=== PATIENT | male | born 1975 | race Caucasian/White ===

== ENCOUNTER 2019-09-11 08:10 | Inpatient (IN) ==
[2019-09-11] MEDS ORDERED: ZOFRAN IV ONE (08:34)
[2019-09-11] MEDS ORDERED: TORADOL IV ONE (08:34)
[2019-09-11 09:12] LABS: BASO# 0.02 X1000 (0.0-0.2); BASO% 0.1 % (0.0-0.8); EOS# 0.04 X1000 (0.0-0.7); EOS% 0.3 % (0.0-10.0); HEMATOCRIT 38.4 % (42.0-52.0); HEMOGLOBIN 13.3 g/dL (14.0-18.0); IMM GRAN# 0.02 X1000 (0.0-0.04); IMM GRAN% 0.1 % (0.0-0.5); LYMPH# 1.39 X1000 (1.2-3.4); LYMPH% 10.4 % (20.5-51.1); MCH 30.2 PG (27-31); MCHC 34.6 g/dL (33-37); MCV 87.3 FL (81-99); MONO# 1.15 X1000 (0.11-0.59); MONO% 8.6 % (1.7-9.3); MPV 10.3 FL (7.4-10.4); NEUT# 10.73 X1000 (1.4-6.5); NEUT% 80.5 % (42.2-75.2); PLT 242 X1000 (130-400); RDW 13.2 % (11.5-14.5); WBC 13.35 X1000 (4.8-10.8)
[2019-09-11 09:35] LABS: ALBUMIN 3.9 g/dL (3.5-5.0); CALCIUM 9.1 mg/dL (8.8-10.2); CREATININE 1.4 mg/dL (0.7-1.2); POTASSIUM 4.3 mmol/L (3.5-5.1); TOTAL PROTEIN 7.6 g/dL (6.3-8.3)
[2019-09-11] MEDS ORDERED: NS 1,000 ML IV ONE (09:37)
--- NOTE | 2019-09-11 09:41 | PROVIDER DOCUMENTATION ---
HPI-Abdominal Pain/GI Problem - General Chief Complaint: Flank Pain Stated Complaint: LOWER ABD PAIN Time Seen by Provider: 09/11/19 09:04 Source: patient Allergies/Adverse Reactions: Patient Allergies Allergy/AdvReac Type Severity Reaction Status Date / Time No Known Allergies Allergy Verified 09/09/19 06:44 Home Medications: Home Medication List Medication Instructions Recorded Confirmed Last Taken Type Hydrocodone/Acetaminophen [[place] 1 ea PO Q6H PRN #12 tab 09/07/19 09/09/19 09/09/19 Rx 7.5-325 Tablet] Tamsulosin [Flomax] 0.4 mg PO DAILY #10 cap 09/07/19 09/09/19 09/08/19 Rx Promethazine [Phenergan] 25 mg PO Q6H PRN PRN #14 tab 09/09/19 Unknown Rx - History of Present Illness-ABD Nature of Presenting Problems: 43yom present to ER with c/o abd pain. Pt reports he had a lithotripsy performed on 09/07. Pt returned to ER with increased pain on 09/09 showing 4mm stone and possible ileus. Denies fever. Pt states the norco is not helping his pain. Denies nvd. Abdominal Pain Onset Location: reports: generalized abdomen Pain Radiation: reports: groin Quality of Pain: reports: sharp Onset/Duration: reports: 2 days ago Timing: reports: still present Associated Symptoms: reports: genitourinary problems. denies: constipation, fever/chills, shortness of breath, vomiting Emesis Description: reports: none Review of Systems - Adult - REVIEW OF SYSTEMS - ADULT Constitutional: reports: no symptoms reported. denies: chills, fever Eyes: reports: no symptoms reported Ears, Nose, Mouth & Throat: reports: no symptoms reported Cardiovascular: reports: no symptoms reported. denies: chest pain Respiratory: reports: no symptoms reported. denies: shortness of breath Gastrointestinal: reports: see HPI, abdominal pain. denies: constipation, nausea, vomiting Genitourinary: reports: see HPI, dysuria, flank pain, hematuria Musculoskeletal: reports: no symptoms reported Integumentary: reports: no symptoms reported Neurological: reports: no symptoms reported Psychiatric: reports: no symptoms reported Endocrine: reports: no symptoms reported Hematologic/Lymphatic: reports: no symptoms reported Allergic/Immunologic: reports: no symptoms reported All Other Systems: Reviewed and Negative Past History - Adult - PAST MEDICAL HISTORY-ADULT Review of Records: reports: Old Records Reviewed, Nursing Assessment Review, Medications Reviewed, Social history reviewed & non-contributory. Major Childhood Illnesses: reports: denies history Cardiovascular: reports: HTN Respiratory: reports: denies history Gastrointestinal: reports: denies history Obstetrical/Gynecological: reports: denies history Genitourinary: reports: denies history Musculoskeletal: reports: chronic pain (right shoulder), orthopedic injury (right shouder) Neurological: reports: denies history Endocrine/Immune: reports: denies history Other Conditions: reports: denies history - PRIOR SURGERIES/PROCEDURES Surgical/Procedure History: reports: cholecystectomy - IMMUNIZATION STATUS Childhood Immunizations: See Nurse Assessment Flu Vaccine: See Nurse Assessment - FAMILY HISTORY Family History: reviewed, not pertinent - SOCIAL HISTORY Smoking: denies Physical Exam-General - PHYSICAL EXAM-ADULT Initial Vital Signs Reviewed: Yes - CONSTITUTIONAL General Appearance: alert, mild distress - HEAD, EARS, NOSE, MOUTH & THROAT HENMT: moist mucous membranes, normal ENT inspection - NECK Neck: full range of motion, supple, normal inspection - RESPIRATORY Respiratory: lungs clear, normal breath sounds, no respiratory distress, no accessory muscle use - CARDIOVASCULAR Cardiovascular: regular rate, rhythm - GASTROINTESTINAL (ABDOMEN) Abdominal Exam: normal bowel sounds, soft, tenderness (diffuse) - GENITOURINARY Male Genitalia: deferred Rectal Exam: deferred - LYMPHATIC Lymphatic: no adenopathy - MUSCULOSKELETAL Back Exam: normal inspection, no vertebral tenderness, CVA tenderness Extremity: normal range of motion, normal gait, normal inspection - SKIN Integumentary: normal color, warm/dry - NEUROLOGIC Neurologic: grossly normal, no motor/sensory deficits - PSYCHIATRIC Psych/Mental Status: normal mood/affect, normal thought content, normal thought process Progress - PLAN OF CARE/RESULTS Progress/Plan/Lab Results: Vital Signs - 8 hr 09/11/19 08:14 Temperature 98.5 F Pulse Rate 83 Respiratory Rate 16 Blood Pressure 156/82 O2 Sat by Pulse Oximetry 96 Laboratory Results - last 24 hr 09/11/19 09/11/19 08:30 08:30 WBC 13.35 H RBC 4.40 L Hgb 13.3 L Hct 38.4 L MCV 87.3 MCH 30.2 MCHC 34.6 RDW Std Deviation 13.2 Plt Count 242 MPV 10.3 Immature Gran % (Auto) 0.1 Neut % (Auto) 80.5 H Lymph % (Auto) 10.4 L [place] % (Auto) 8.6 Eos % (Auto) 0.3 Baso % (Auto) 0.1 Immature Gran # (Auto) 0.02 Neut # (Auto) 10.73 H Lymph # (Auto) 1.39 [place] # (Auto) 1.15 H Eos # (Auto) 0.04 Baso # (Auto) 0.02 Sodium 136 Potassium 4.3 Chloride 101 Carbon Dioxide 23 L Anion Gap 13 BUN 12 Creatinine 1.4 H Estimated GFR/1.73 m2 55 BUN/Creatinine Ratio 9 Glucose 135 H Calculated Osmolality 274 Calcium 9.1 Total Bilirubin 1.00 AST 19 ALT 25 Alkaline Phosphatase 59 Total Protein 7.6 Albumin 3.9 Globulin 4.0 Albumin/Globulin Ratio 1.0 Orders Category Date Time Status CT ABD/PELVIS W/IV CONT ONLY [CT] Stat Exams 09/11/19 09:31 Ordered CBC WITH DIFF [HEME] Stat Lab 09/11/19 08:30 Completed COMPREHENSIVE METABOLIC PANEL [CHEM] Stat Lab 09/11/19 08:30 Completed UA [URINALYSIS W/POSS RFLX CULT] [URINALYSIS] Stat Lab 09/11/19 09:33 Ordered Ketorolac [Toradol] Med 09/11/19 08:34 Discontinued 30 mg IV NOW ONE Ns 1000 ml IV Bolus X1 Med 09/11/19 09:37 Ordered 0.9% Sodium Chloride Inj [Ns] 1,000 ml IV 999 mls/hr Ondansetron [Zofran] Med 09/11/19 08:34 Discontinued 4 mg IV NOW ONE Result Diagrams: 09/11/19 08:30 09/11/19 08:30 - REASSESSMENT Reassessment #1 Time Reassessed: 09:37 (discussed pt with Dr Lucio, suggests rescanning pt. Made aware of creat, suggesting give 1L NS) Reassessment #2 Time Reassessed: 11:11 (states pain has improved but is starting to come back. Made aware of results thus far) Status: improving Reassessment #3 Time Reassessed: 11:19 (discussed with pt that Dr Goodwin suggests dc home with Rx toradol. Pt again states he does not wish to do this. Will plan to admit pt.) - CT/MRI 1 CT Study: Abdomen, Pelvis Impression: See EMR Report ( EXAM: CT ABD/PELVIS W/IV CONT ONLY - 09/11/2019 HISTORY: abd pain, r/o ileus TECHNIQUE: CT abdomen/pelvis with intravenous contrast COMPARISON: 09/09/2019 CT renal stone search without contrast FINDINGS: There is a 4 mm stone in the distal right ureter slightly proximal to the ureterovesicular junction similar to prior. There is moderate right hydronephrosis similar to prior. There is increased right perinephric edema. There are nonobstructing stones in the lower right kidney measuring up to 10 mm. There is no left renal stone or left hydronephrosis identified. There are no substantial abnormalities of the liver, spleen, or pancreas identified. 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 The gallbladder surgically absent. There are no substantially enlarged lymph nodes identified. There is no evidence of bowel obstruction. There has been interval decrease in mild wall bowel distention compared to prior. The appendix is somewhat difficult to evaluate due to adjacent perinephric edema, but there is no obvious appendicitis. There is no free air or abscess identified. IMPRESSION: 4 mm stone in distal right uret er, with moderate right hydronephrosis, similar to prior. There is increased perinephric edema on the right compared to prior. Nonobstructing stones in lower right kidney. Decrease in mild small bowel distention compared to prior. This exam was performed using automated exposure control, adjustment of mA or kV according to patient size, and/or use of iterative reconstruction technique. Electronically signed by Vijay Deal 09/11/2019 11:01 AM) - CONSULTS/PCP/HOSPITALIST Notification #1 *Consult/PCP/Hospitalist*: Dr Goodwin Time Discussed: 11:15 (either dc pt home with Rx Toradol or admit to hospitalist. Made aware pt is not happy with plan to dc home. ) Consult Disposition: Admit (to [facility]) #2 Consult: Dr West Time Discussed: 11:34 Consult Disposition: Will see in ED, Admit Departure - Departure Date of Disposition Decision: 09/11/19 Time of Disposition Decision: 11:20 DIAGNOSIS: Ureteral stone Disposition: ADMITTED INPATIENT 09 Certified Medical Emergency: Emergent Condition: Stable Referrals and Follow-Ups: Ruslan Fischer MD [Primary Care Provider] - - Critical Care Note This patient required my direct & personal management of CC.: No Attestation - Physician/ SILVIA Attestation Patient care was provided by Advanced Practice Provider:: Yes Advanced Practice Provider:: Salud Taylor Advanced Practice Provider documentation review:: The Mid-level provider documentation, treatment plan and medical decision making was reviewed by the physician who agrees with all treatment and medical decision making by the MLP. The physician spent face to face time with patient:: No Advanced Practice Provider documentation review:: Supervising physician onsite and consulted in the evaluation and care of this patient. The physician did not have a face to face encounter with the patient.
[2019-09-11 09:46] LABS: URINE SOURCE CLEAN CATCH
[2019-09-11 09:58] LABS: BILIRUBIN URINE NEGATIVE (NEGATIVE); BLOOD URINE SMALL (NEGATIVE); COLOR YELLOW; GLUCOSE URINE NEGATIVE (NEGATIVE); KETONE URINE TRACE mg/dL (NEGATIVE); LEUKOCYTES URINE NEGATIVE (NEGATIVE); NITRITE URINE NEGATIVE (NEGATIVE); PH URINE 7.5; PROTEIN URINE 50 mg/dL (NEGATIVE); SP GRAVITY URINE 1.021; TURBIDITY URINE CLEAR (CLEAR); UR EPITHELIAL CELLS <10 /HPF (<10); URINE BACTERIA NEGATIVE /HPF; URINE RBC <10 /HPF (<10); URINE WBC <10 /HPF (<10); UROBILINOGEN URINE NORMAL (NORMAL)
--- NOTE | 2019-09-11 11:03 | Diag Imaging Result Doc PS360 ---
EXAM: CT ABD/PELVIS W/IV CONT ONLY - 09/11/2019 HISTORY: abd pain, r/o ileus TECHNIQUE: CT abdomen/pelvis with intravenous contrast COMPARISON: 09/09/2019 CT renal stone search without contrast FINDINGS: There is a 4 mm stone in the distal right ureter slightly proximal to the ureterovesicular junction similar to prior. There is moderate right hydronephrosis similar to prior. There is increased right perinephric edema. There are nonobstructing stones in the lower right kidney measuring up to 10 mm. There is no left renal stone or left hydronephrosis identified. There are no substantial abnormalities of the liver, spleen, or pancreas identified. 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 The gallbladder surgically absent. There are no substantially enlarged lymph nodes identified. There is no evidence of bowel obstruction. There has been interval decrease in mild wall bowel distention compared to prior. The appendix is somewhat difficult to evaluate due to adjacent perinephric edema, but there is no obvious appendicitis. There is no free air or abscess identified. IMPRESSION: 4 mm stone in distal right ureter, with moderate right hydronephrosis, similar to prior. There is increased perinephric edema on the right compared to prior. Nonobstructing stones in lower right kidney. Decrease in mild small bowel distention compared to prior. This exam was performed using automated exposure control, adjustment of mA or kV according to patient size, and/or use of iterative reconstruction technique. Electronically signed by Vijay Deal 09/11/2019 11:01 AM
[2019-09-11] MEDS ORDERED: MORPHINE IV ONE (11:20)
[2019-09-11] MEDS ORDERED: ZOFRAN IV PRN ×2 (12:26→16:06)
[2019-09-11] MEDS ORDERED: MORPHINE IV PRN ×2 (12:26→16:05)
[2019-09-11] MEDS ORDERED: NS 1,000 ML IV SCH (12:30)
[2019-09-11] MEDS ORDERED: FLOMAX PO SCH (12:30)
[2019-09-11 16:29] LABS: CALCIUM 8.5 mg/dL (8.8-10.2); CREATININE 1.4 mg/dL (0.7-1.2); POTASSIUM 3.9 mmol/L (3.5-5.1)
[2019-09-11] MEDS: DULCOLAX PR SCH (18:00)
[2019-09-11] MEDS: NS 1,000 ML IV SCH (18:00)
--- NOTE | 2019-09-11 19:16 | HISTORY AND PHYSICAL ---
CHIEF COMPLAINT: Right flank pain. HPI: This is a 43-year-old gentleman with a prior history of kidney stones, high cholesterol, hypertension who is status post right extracorporeal shockwave lithotripsy on 09/07/2019. He presents to the emergency room for the second time in 48 hours complaining of right flank pain. He denied any nausea, vomiting, diarrhea, any chest pain, any fevers or chills. Renal CT on August 09 revealed a 4 mm obstructing stone in the distal right ureter with moderate right hydronephrosis and possible mild ileus. CT scan of the abdomen and pelvis with IV contrast today revealed a 4 mm stone in the distal right ureter with moderate right hydronephrosis similar to prior but with increased perinephric edema on the right compared to prior with a decrease in the mild small bowel distention. PAST MEDICAL HISTORY: 1. Kidney stones. 2. Migraine headaches. PAST SURGICAL HISTORY: Lithotripsy and cholecystectomy. SOCIAL HISTORY: He is . He denies any alcohol, tobacco or illicit drug use. ALLERGIES: No reported allergies. HOME MEDICATIONS: A list will be obtained by the nursing staff and once verified review and restart as appropriate. REVIEW OF SYSTEMS: Discussed patient with pertinent positives stated in the HPI. He denied any syncope, dizziness, chest pain, palpitations, any fevers or chills, PND, orthopnea, any nausea, vomiting, diarrhea, constipation, black or bloody vomitus or stools any hematuria dysuria, gross hematuria, dysuria, frequency ,urgency. PHYSICAL EXAMINATION: GENERAL: This is a 43-year-old gentleman who is lying on the stretcher in the emergency room in no distress. VITAL SIGNS: Blood pressure is 150/80 with a heart rate of 83, respirations 16, temperature is 98.5 degrees oral with room air saturations 96 to 98 percent. HEENT: Pupils are equal, round, react to light. EOMs are intact. Sclerae are anicteric. Head is normocephalic, atraumatic. Mucous membranes are moist. NECK: Supple with trachea midline. CARDIOVASCULAR: Regular rate and rhythm. S1 and S2 appreciated. Calves are nontender bilateral. Peripheral pulses palpable x4 extremities. PULMONARY: Breath sounds are clear with no increased work of breathing noted. Chest rises and falls symmetric respiration. GASTROINTESTINAL: Abdomen soft, nontender, nondistended with bowel sounds in all 4 quadrants. GENITOURINARY: He has positive right CVAT. No suprapubic tenderness. NEUROLOGIC: He is alert and oriented x3. SKIN: Warm and dry. LABS: WBC is 13.3 with hemoglobin 13.3, hematocrit 38.4, platelets 242,000. Sodium 136, potassium 4.3, BUN 12, creatinine 1.4 with a glucose of 135. Urinalysis has small amount of blood, which is consistent with stone. CT of the abdomen and pelvis reveals a 4 mm stone in the distal right ureter with moderate right hydronephrosis with increased perinephric edema on the right compared to prior. ASSESSMENT AND PLAN: 1. Obstructing 4 mm stone in the distal right ureter with moderate right hydronephrosis with increased perinephric edema. 2. Decrease in small bowel distention compared to prior. 3. Right costovertebral angle tenderness/right lower quadrant pain. PLAN: Will admit him to the hospital. He will be transferred to [facility] to be followed by Dr. Joseph, urology. He will have full liquids with monitor strict I and O, will check a BMP and CBC at 3 o'clock and then in the morning. Use morphine IV for pain with Zofran for nausea. Will start Flomax b.i.d., continue with gentle hydration, give Dulcolax per rectum now on then q.6 hours. Plan was discussed with Dr. Fischer. Further treatments pending hospital course. Dictated by PINKY West for Ruslan Fischer MD cc: PINKY West MD
[2019-09-11] MEDS: DILAUDID IV PRN (20:15)
--- NOTE | 2019-09-11 21:34 | CONSULTATION ---
DATE OF CONSULTATION: 09/11/2019 CHIEF COMPLAINT: Right flank and pelvic pain with right ureteral stone. HISTORY OF PRESENT ILLNESS: Mr. Gomez is a 43-year-old who presented to the emergency room this morning complaining of right lower pelvic and flank pain. The patient had undergone a right extracorporeal shockwave lithotripsy on 09/07/2019. He was having significant pain on Wednesday and came into the emergency room. A CT scan was performed at that time which showed a 4 mm stone in the distal right ureter. He was not having any fevers or chills at that time and was sent home with pain control. However, patient's pain persisted and he re-presented to the emergency room today. He has had several stone events in the past, but he has been able to pass them spontaneously. He states he passed several stones at home after his surgery last , but has been having persistent pain. However, this stone fragment seems to have obstructed him and not passed. The patient complains of nausea. Denies any vomiting. He remains afebrile. He is having some burning with urination and occasional blood in his urine. ALLERGIES: No known drug allergies. MEDICATIONS: 1. [place] 7.5/325 mg take one tablet every six hours as needed for pain. 2. Flomax 0.4 mg daily. 3. Phenergan 25 mg every six hours. PAST MEDICAL HISTORY: 1. Hypertension. 2. Nephrolithiasis. 3. Right shoulder pain. 4. Hyperlipidemia PAST SURGICAL HISTORY: 1. Cholecystectomy. 2. Extracorporeal shock lithotripsy on 09/07/2019. SOCIAL HISTORY: Denies tobacco or illicit drug use. FAMILY HISTORY: Denies family history of malignancy. PHYSICAL EXAMINATION: Vital Signs: Temperature 98.6, heart rate 79, blood pressure 147/90, oxygen saturation 98% on room air. General: No acute distress. Resting comfortably in bed. Alert and oriented x3. Respiratory: Good respiratory effort without audible wheezing or rales. Abdomen: Soft. Mild tenderness to palpation. No palpable masses. Genitourinary: No suprapubic tenderness. Mild right CVA tenderness. Bilateral testicles palpated without masses or asymmetry. Slight tenderness to palpation of the right groin. Musculoskeletal: Moving all extremities. Neurologic: Gross motor and sensory intact. Skin: No obvious skin lesions or rashes. LABS: White blood cell count 13.3, hemoglobin 13.3, hematocrit 38.4, platelets 242,000. Sodium 137, potassium 3.9, chloride 102, bicarb 25, BUN 14, creatinine 1.4, glucose 90. Urinalysis shows a small amount of blood, negative leukocytes, negative bacteria. IMAGING: CT scan images reviewed. The CT of the abdomen and pelvis showed an approximate 4 mm stone seen in the distal right ureter as well as several stones seen within the kidney itself in the lower pole. Distal ureteral stone is several centimeters above the ureterovesical junction. Small amount of stranding is seen around the kidney and ureter with mild to moderate hydronephrosis. ASSESSMENT AND PLAN: Mr. Gomez is a 43-year-old with history of hypertension and nephrolithiasis who presents in consultation regarding right distal ureteral stone. The patient was seen in the emergency room on 09/09/[address] scan which showed a stone in the distal right ureter. He re-presented due to worsening pain. Stone seems to be in stable position and really unchanged. The patient's creatinine is 1.4 and was 1.2 on last evaluation. The patient continues to have pain. I talked with him on the floor. The patient would like to try to pass the stone spontaneously with pain control and hydration. I told him if he is unable to pass the stone, would have to consider surgical intervention with cystoscopy and ureteroscopy to break up the stone for removal. The patient had some stones present within the kidney itself. The patient's stone was quite hard on shockwave. Continue to strain urine. Will make the patient NPO at midnight in case the patient is unable to pass the stone, we will plan to perform right ureteroscopy and stone removal tomorrow if he is unable to pass the stone. The patient is in agreement. We will continue to follow from a urologic standpoint. Please call with questions or concerns. cc: Krishan Joseph MD MTDD
[2019-09-12] MEDS: DILAUDID IV PRN ×4 (03:18→13:55)
[2019-09-12] MEDS: NS 1,000 ML IV SCH ×3 (04:33→13:57)
[2019-09-12] MEDS: DULCOLAX PR SCH (04:33)
--- NOTE | 2019-09-12 06:36 | HISTORY AND PHYSICAL ---
ADDENDUM: Patient seen and examined by myself. Full note dictated and discussed with nurse practitioner. Patient was actually seen and treated with lithotripsy a few days ago. Since then, he has had increased difficulty urinating. A CT on September 09 showed a 4 mm ureteral stone. Unfortunately, he has not passed a stone. He is having difficulty urinating. His creatinine is actually mildly elevated. We are going to admit him to the hospital and transfer him to [facility] for Urology assistance. cc: Ruslan Fischer MD
[2019-09-12 06:56] LABS: BASO# 0.04 X1000 (0.0-0.2); BASO% 0.5 % (0.0-0.8); EOS# 0.14 X1000 (0.0-0.7); EOS% 1.6 % (0.0-10.0); HEMATOCRIT 35.3 % (42.0-52.0); HEMOGLOBIN 11.8 g/dL (14.0-18.0); IMM GRAN# 0.02 X1000 (0.0-0.04); IMM GRAN% 0.2 % (0.0-0.5); LYMPH# 1.69 X1000 (1.2-3.4); LYMPH% 19.7 % (20.5-51.1); MCHC 33.4 g/dL (33-37); MCV 89.8 FL (81-99); MONO# 1.22 X1000 (0.11-0.59); MONO% 14.2 % (1.7-9.3); MPV 10.3 FL (7.4-10.4); NEUT# 5.47 X1000 (1.4-6.5); NEUT% 63.8 % (42.2-75.2); PLT 210 X1000 (130-400); RBC 3.93 XMIL (4.7-6.1); RDW 13.5 % (11.5-14.5); WBC 8.58 X1000 (4.8-10.8)
[2019-09-12 07:10] LABS: AGAP 7; BUN 12 mg/dL (8-22); CALCIUM 8.4 mg/dL (8.8-10.2); CHLORIDE 102 mmol/L (98-107); COSMO 270; CREATININE 1.2 mg/dL (0.7-1.2); ESTIMATED GFR > 60; GLUCOSE 108 mg/dL (70-104); POTASSIUM 4.2 mmol/L (3.5-5.1); SODIUM 135 mmol/L (136-145); TCO2 26 mmol/L (25-35)
--- NOTE | 2019-09-12 07:16 | PROGRESS NOTE ---
DATE: 09/12/2019 SUBJECTIVE: The patient states that he has been straining his urine and has been unable to pass a stone. He continues to have right lower quadrant abdominal pain. Denies any fevers or chills. He was able to tolerate p.o. intake last night was NPO in preparation for possible surgery today. He continues to have pain and associated. Nausea denies any vomiting. OBJECTIVE: Vital Signs: Temperature 98.8 degrees, heart rate 69, blood pressure 133/81, O2 saturation 100% on room. GENERAL: No acute distress. Resting comfortably in bed. Alert and oriented x3.Respiratory: Good respiratory effort without audible wheezing or rales. Cardiovascular: Regular rate and rhythm. Abdomen: Soft, nondistended, slight tenderness to palpation of the right lower quadrant. GENITOURINARY: Mild CVA tenderness on the right side. Mild suprapubic tenderness. No palpable masses. Labs: A.M. labs have not returned yet. ASSESSMENT AND PLAN: Mr. Gomez is a 43 year old who presented in consultation regarding an obstructing 4 mm stone in the distal right ureter. The patient had undergone extracorporeal shockwave lithotripsy on 09/07/2019. The patient was seen in the emergency room on 09/09/2019 by the ER physicians with stone seen in the distal ureter. The patient has been unable to pass it on repeat imaging yesterday. Due to this finding, I recommended consideration for ureteroscopic removal. Encouraged him to continue to try to stay hydrated with IV fluids. Nothing to eat or drink in preparation for surgery later today. We will plan for right ureteroscopy, lithotripsy and stone basket extraction. Will attempt to remove all stones that we can reach. My concern is that his ureter may be narrow and not accommodating for ureteroscope up into the kidney. The patient will be left with the stent and discussed treatment of his kidney stones if unable to get to the kidney itself. We will continue to monitor from a urologic standpoint. Continue n.p.o. We will plan for surgery later today. cc: MD MAMADOU Garza
[2019-09-12] MEDS: FLOMAX PO SCH (08:01)
--- NOTE | 2019-09-12 09:13 | PROGRESS NOTE ---
DATE: 09/12/2019 SUBJECTIVE: Mr. Gomez was treated with lithotripsy a couple days ago. Since then, he has had increased difficulty urinating. CT on 09/09/2019 showed a 4 mm ureter stone. Unfortunately, he has not passed a stone, and he is having some difficulty urinating. Creatinine was mildly elevated. OBJECTIVE: General: Today, he says he is not having any nausea. He is uncomfortable mainly in the groin. Vital Signs: Temperature 99.6 degrees, pulse 70, respirations 18, blood pressure 129/90. HEENT: Pupils are equal and round. Lungs: Clear in all lung cooper. Cardiovascular: Regular rhythm and rate without murmur or S3. Urine output is 2400 mL. ASSESSMENT AND PLAN: 1. Obstructing 4 mm stone, distal right ureter. Moderate right hydronephrosis with increased perinephric edema. 2. Decrease in small bowel distention compared to prior exam. 3. Right costovertebral angle tenderness and right quadrant pain. I think the plan is to go in and extract the stone this afternoon. He is on Flomax 0.4 mg a day, getting Toradol for pain, and also Dilaudid 1 mg every 3 hours as needed. cc: Irvin Palacios MD
[2019-09-12] MEDS: ROCEPHIN 1 GM in NS 50 ML IV SCH (11:09)
[2019-09-12] MEDS ORDERED: DIPRIVAN 1% ONE (15:06)
[2019-09-12] MEDS ORDERED: XYLOCAINE-MPF 2% ONE (15:06)
[2019-09-12] MEDS ORDERED: FENTANYL ONE (16:18)
[2019-09-12] MEDS ORDERED: ROBINUL ONE (16:52)
[2019-09-12] MEDS ORDERED: EPHEDRINE ONE (16:53)
[2019-09-12] MEDS ORDERED: PYRIDIUM ONE (18:28)
[2019-09-12] MEDS ORDERED: PYRIDIUM PO PRN (19:02)
[2019-09-12] MEDS: PERIDEX MT SCH (21:05)
--- NOTE | 2019-09-12 21:14 | OPERATIVE NOTE ---
PROCEDURE DATE: 09/12/2019 PREOPERATIVE DIAGNOSES: 1. Right ureteral stone. 2. Right renal stone. 3. Right flank pain. POSTOPERATIVE DIAGNOSES: 1. Right ureteral stone. 2. Right renal stone. 3. Right flank pain. PROCEDURE PERFORMED: 1. Cystoscopy. 2. Right ureteroscopy with stone basket extraction. 3. Laser lithotripsy. 4. Right retrograde pyelogram. 5. Right ureteral stent placement. SURGEON: Krishan Joseph MD. CP BLEACHER OPERATOR: None. COMPLICATIONS: None. BLOOD LOSS: Minimal. DRAIN: A 6 x 26 cm right ureteral stent. SPECIMENS REMOVED: 1. Right renal stones. 2. Right ureteral stone. INDICATIONS FOR PROCEDURE: Mr. Kothari is a 43-year-old who underwent extracorporeal shockwave lithotripsy on 09/07/2019. The patient had a very hard stone. The stone did not break up as efficiently as desired. Unfortunately, over the weekend the patient passed several stones and was having significant pain. He presents emergency room both on Wednesday, as well as Wednesday with flank pain and was admitted yesterday due to his pain. CT scans showed a 4 mm stone in the distal right ureter. The patient was observed overnight last night and was unable to pass it and desired surgical intervention. Risks, benefits, and alternatives were discussed with the patient and he elected to proceed. Discussed role of bleeding, infection, damage to surrounding structures, and need for postoperative stenting. After thorough discussion, he elected to proceed. DESCRIPTION OF PROCEDURE: After informed consent was obtained, the patient was brought to the operating room, placed on table in supine position. The patient received preoperative antibiotics on the floor and underwent LMA placement. He was positioned into dorsal lithotomy position, was prepped and draped in usual sterile fashion. A preoperative time-out was performed with all parties in agreement, including anesthesia, surgical, nursing staff. At which point I inserted a 21-Kazakh cystourethroscope through the urethra. There was slight narrowing at the urethral meatus. I was able dilated the urethra and ultimately get the cystourethroscope into the urethra. The urethra was normal with no evidence of prostatic hypertrophy or obstruction. Once in the bladder, both ureteral orifices were visualized. The entirety of the bladder was inspected. No diverticulum or cellules. There were no papillary lesions or erythema of the bladder. Once the bladder was inspected, attention was placed to the right ureteral orifice. Also, I was able to place a ZIPwire past the stone up into the kidney itself. The ZIPwire was left in place. The patient's bladder was drained and then a semi-rigid ureteroscope was advanced through the urethra and into the bladder. Using a PTFE wire, I was able to cannulate the right ureteral orifice and advanced up to the site of the stone. The ureter was narrow, but was able to advance to the stone. There was edema present near the stone. I was able to grasp the stone using a Rajeev basket and dropped in the bladder for later retrieval. Then we advanced the ureteroscope all the way up into the proximal ureter with no significant other stones seen. At which point, I passed a PTFE wire through the scope and into the kidney. This left in place and a flexible ureteroscope was passed over the wire and up into the kidney and the entirety of the kidney was inspected and a relatively large stone was seen in the lower pole of the kidney. This was able to be grasped with our basket and moved up into the upper pole of the kidney. This was left in place and the PTFE wire was then reinserted through the scope and a 12 x 14, 35 cm ureteral access sheath was advanced over the wire and up into the midportion of the ureter. This was passed under fluoroscopic guidance and passed easily without resistance. I was able to then advance the ureteroscope into the kidney. Using a 200 micron fiber, I was able to fragment the stone into multiple small pieces and these were each grasped and retrieved. Once all the visible stone was seen, I preformed a retrograde pyelogram through the scope and each of the calyces were evaluated with no residual large stone fragments seen. The ZIPwire was left in place and then the ureteroscope was slowly withdrawn, which showed normal appearance of the ureter with no significant ureteral trauma seen on complete extraction of the ureteral access sheath and the ureteroscope. The patient's ZIPwire was left in place and then back-loaded through the cystourethroscope and I advanced a 6 x 26 cm stent over the wire and up into the kidney. This was difficult to position the stent appropriately using a string as I think that it was being caught within our cystourethroscope due to his meatal stenosis. I attempted on 2 separate occasions to the leave a stent. However, it kept falling into the urethra itself and was not positioned within the renal pelvis as I would like it to be. The decision was made to remove the tether and then place it without a tether, which allowed for better positioning in the upper pole of the kidney and better drainage of the collecting system itself. Contrast was seen passing through and around the stent. Good curl was seen both in the kidney as well as in the bladder. The patient's bladder was cycled times and several fragments were removed from the bladder and sent with our specimen. The patient's bladder was left decompressed. He was awoken and was taken to recovery in stable condition. DISPOSITION: The patient will be admitted to the floor overnight and if he does well, we plan to try to discharge tomorrow. cc: Krishan Joseph MD MTDD
--- NOTE | 2019-09-13 07:25 | PROGRESS NOTE ---
DATE: 09/13/2019 SUBJECTIVE: Postoperative day 1 from cystoscopy, right ureteroscopy, lithotripsy, stone basket extraction, and right ureteral stent placement for right ureteral stone and right renal stone. The patient states he feels much better today. He denies any fevers or chills. He has been tolerating p.o. intake. He has had good urinary output. Denies any straining to urinate or clot passage. He does state his urine is slightly red tinged but denies dysuria. PHYSICAL EXAMINATION: Vital Signs: Temperature 98.5 degrees, heart rate 74, blood pressure 131/78, oxygen saturation 96% on room. General: No acute distress. Resting in the bed. Alert and oriented x3. Respiratory: Good respiratory effort without audible wheezing or rales. Abdomen: Soft, nontender, nondistended. No tenderness to palpation of the suprapubic area or CVA tenderness. Musculoskeletal: Moving all extremities. ASSESSMENT AND PLAN: Mr. Gomez is postoperative day 1 from cystoscopy, right ureteroscopy, lithotripsy, stone basket extraction, and right ureteral stent placement for obstructing right distal ureteral stone and right renal stone. The patient had extracorporeal shock wave lithotripsy on 09/07/2019, and presented to the emergency room complaining of right flank pain with distal ureteral stone. He was unable to pass it, but the stone was able to be removed yesterday. The patient feels much better today. I have written him for pain medication, antibiotics, and medication for stent discomfort. The patient has indwelling stent. We plan to leave this in until next week. Will schedule outpatient followup for removal. The patient should be able to be discharged later today as long as he tolerates oral intake this morning. Overall looks good. Will have him return to clinic for stent removal, and then follow up 1 month later for discussion of kidney stone analysis. cc: Krishan Joseph MD MTDD
[2019-09-13] MEDS: FLOMAX PO SCH (08:48)
[2019-09-13] MEDS: PERIDEX MT SCH (08:48)
[2019-09-13] MEDS: ROCEPHIN 1 GM in NS 50 ML IV SCH (08:49)
[2019-09-13] MEDS: NS 1,000 ML IV SCH ×2 (08:50→10:55)
--- NOTE | 2019-09-13 09:50 | Diag Imaging Result Doc PS360 ---
EXAM: FLUROSCOPY CYSTO HISTORY: R RENAL AND URETERAL STONES TECHNIQUE: 36 films submitted COMPARISON: None. FINDINGS: There is a wire in the right ureter on the first image. A catheter was placed over this wire. Contrast injected with distention of the renal pelvis and calyces. A ureteral stent was left in the upper pole. IMPRESSION: Right ureteral stent placed. Electronically signed by Stephen Martinez 09/13/2019 9:47 AM
[2019-09-13 11:46] VITALS: BP 152/90
--- NOTE | 2019-09-13 14:45 | DISCHARGE SUMMARY ---
ADMISSION DATE: 09/11/2019 DISCHARGE DATE: 09/13/2019 DISCHARGE DISPOSITION: Home. DISCHARGE CONDITION: Hemodynamically stable. Mr. Gomez has been able to tolerate oral diet without any difficulty. He denies any abdominal pain. DISCHARGE MEDICATIONS: 1. Holt 7.5. 2. Pyridium orally. 3. Bactrim as per Urology recommendation. DISCHARGE DIAGNOSES: 1. Right-sided obstructing ureteric 4 mm stone in the distal right ureter with moderate right hydronephrosis with increased perinephric edema. 2. Right costovertebral angle tenderness. 3. Right lower quadrant abdominal pain. OTHER DIAGNOSES: 1. History of recurrent nephrolithiasis, requiring outpatient extracorporeal shock wave lithotripsy on 09/07/2019. 2. History of migraine headache. PHYSICAL EXAMINATION: Vital Signs: At the time of discharge, temperature 99.4 degrees, pulse 79, respiratory rate 22, blood pressure 152/90, saturating 97% room air. HEENT: Oral cavity is moist. Lungs: Air entry bilaterally equal. No wheeze, rhonchi, or crackles. Heart: S1, S2 normal. No murmur or gallop. Abdomen: Soft, nontender. Active bowel sounds. The patient does not have any costovertebral angle tenderness. Extremities: No lower extremity edema. Neurologic: Mr. Gomez is alert and oriented x3. LABORATORY DATA AT ADMISSION AND DISCHARGE: WBC improved from 13,000 to 8000, hemoglobin 11.8, platelets 210,000. BUN 12, creatinine 1.2, which improved from 1.4 on presentation. MICROBIOLOGY: No data. IMAGING DURING HOSPITAL ADMISSION: Abdomen and pelvis CT on 09/11/2019 had a 4 mm stone in the distal right ureter, with moderate right hydronephrosis, similar to prior. There was also increased perinephric edema on the right compared to prior. PROCEDURES AND CONSULTATIONS DURING HOSPITAL ADMISSION: Dr. Joseph. On 09/12/2019, the patient underwent cystoscopy, right ureteroscopy with stone basket extraction, laser lithotripsy, right retrograde pyelogram, right ureteral stent placement. HOSPITAL COURSE SUMMARY: Mr. Gomez is a 43-year-old, man, who presented on 09/11/2019 with chief complaint of right flank pain. He, as an outpatient, underwent right extracorporeal shock wave lithotripsy on 09/07/2019. However, 2 days later, he started experiencing right flank and right lower quadrant pain. He did not have nausea, vomiting, diarrhea. Renal CT had a 4 mm obstructing stone in the distal right ureter, with moderate right-sided hydronephrosis, which was unchanged from the one in 08/2019. However, there was increasing perinephric edema on the right as compared to prior, so the patient was admitted, was started on intravenous fluids, intravenous antibiotics, and Urology was consulted for further management. The next day, the patient underwent basket stone extraction and stent placement, which he tolerated well. Plan is to discharge the patient on home antibiotics, and have outpatient Urology followup. The Urology team would plan removing the stent in subsequent weeks. Plan of care was discussed with the patient. He was in agreement. TIME SPENT: 20 minutes were spent in discharging this patient. cc: Eduardo Downing MD
== END 2019-09-13 15:13 | disposition home or self-care (01) | DRG 661 ==
LOC: P.ED 08:10 → SUATTDRO 16:02 → 4N 16:02
PROVIDERS: ATTEND Internal Medicine